=== PATIENT | male | born 1960 | race Caucasian/White ===

== ENCOUNTER 2022-01-18 17:36 | Emergency (ER) | payer MEDICARE, MEDICAID ==
[~2022-01-18] VITALS: Ht 182.9 cm; Wt 113.6 kg
[~2022-01-18 17:36] MED LIST: LOSA50TA3 PO; OXYC5SOL15 PO; PANT40TA39 PO; PROM25TA14 PO; ZOF4T PO; ZOLP10TA5 PO
[2022-01-18 18:43] LABS: BASOPHILS % (AUTO) 0.7 % (0-1); EOSINOPHILS # (AUTO) 0.1 X10'3 (0-0.9); EOSINOPHILS % (AUTO) 2.9 % (0-6); HEMATOCRIT 43.7 % (42.0-52.0); HEMOGLOBIN 14.4 g/dl (14.0-17.9); LYMPHOCYTES # (AUTO) 0.9 X10'3 (1.1-4.8); LYMPHOCYTES % (AUTO) 18.8 % (21-51); MEAN CORPUSCULAR HEMOGLOBIN 28.2 PG (27.0-31.0); MEAN CORPUSCULAR HGB CONC 32.9 g/dL (33.0-36.5); MEAN CORPUSCULAR VOLUME 85.7 FL (78-98); MEAN PLATELET VOLUME 8.7 FL (7.4-10.4); MONOCYTES # (AUTO) 0.3 X10'3 (0-0.9); MONOCYTES % (AUTO) 5.6 % (2-12); NEUTROPHILS # (AUTO) 3.6 X10'3 (1.8-7.7); PLATELET COUNT 154 X10'3 (140-440); RED CELL DISTRIBUTION WIDTH 14.8 % (11.5-14.5)
[2022-01-18 20:34] LABS: ALANINE AMINOTRANSFERASE 24 U/L (12-78); ALBUMIN 3.7 G/DL (3.4-5.0); ALBUMIN/GLOBULIN RATIO 0.9 (1.1-1.5); ALKALINE PHOSPHATASE 66 IU/L (46-116); ANION GAP 1 (8-16); ASPARTATE AMINO TRANSFERASE 22 U/L (10-37); BILIRUBIN,TOTAL 0.7 MG/DL (0.1-1.0); BLOOD UREA NITROGEN 19 MG/DL (7-18); BUN/CREATININE RATIO 13.9 (5.4-32.0); CALCIUM 8.9 MG/DL (8.5-10.1); CHLORIDE 105 MMOL/L (99-107); CREATININE 1.37 MG/DL (0.60-1.10); GLUCOSE 158 MG/DL (70-104); POTASSIUM 4.5 MMOL/L (3.5-5.1); SODIUM 136 MMOL/L (135-145); TOTAL CARBON DIOXIDE 29.6 MMOL/L (24-32); TOTAL PROTEIN 7.9 G/DL (6.4-8.2); eGFR 53 ML/MIN
--- NOTE | 2022-01-19 03:39 | NUR ---
DR JOHN AWARE OF PT'S BP
[2022-01-19 04:10] VITALS: BP 198/92
== END 2022-01-19 04:13 | disposition home or self-care (01) ==
LOC: MERGE 17:37 → ER 17:37
DX: I10 Essential (primary) hypertension (principal); R53.1 Weakness; R51.9 Headache, unspecified; R07.89 Other chest pain; R06.02 Shortness of breath; Z88.2 Allergy status to sulfonamides
CPT/HCPCS: 36415; 71045; 80053; 83880; 84484; 85025; 93005; 99285

== ENCOUNTER 2025-02-22 09:45 | Outpatient (CLI) | payer MEDICARE, MEDICAID ==
[~2025-02-22 09:45] MED LIST changes: +LOSA-416 PO; -LOSA50TA3 PO
--- NOTE | 2025-02-22 19:41 | CONSULTATION ---
DATE OF CONSULTATION: 02/22/2025 DICTATING PHYSICIAN: Adia Heaton M.S., [facility] MODIFIED BARIUM SWALLOW STUDY REPORT REFERRING PHYSICIAN: Anum Prajapati MD HISTORY OF PRESENT ILLNESS: The patient is a 64-year-old male who consents to this evaluation. History was obtained from the patient and medical records. The patient reports symptoms of dysphagia including feeling that things stick in his esophagus at the level of his sternum. He reports that it is often dry foods or items such as chicken breast, he has to cut them up very small and utilize a dressing or sauce to help it go through the esophagus easier. He notes that he tends to avoid things such as beef roast and pork roast due to difficulty with these sticking in his esophagus. The patient had an upper GI that he reports was normal in its findings. 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 He also has a history of sleep apnea. CURRENT DIET: The patient does not consume caffeine. He does not utilize tobacco products or drink alcohol. He has chocolate very rarely, perhaps once every few months and he does not have dairy due to being lactose intolerant. A typical breakfast consists of hash browns cut into very small pieces with an egg on top to make it more moist, as well as 1-2 sausages cut into small pieces. He does not snack in the morning. Typical lunch may be a microwave burrito or ramen. He does not snack in the afternoon. Typical dinner may be chicken, beef or frozen noodles, which are consumed at 6:00 p.m. He has fruit in the summertime for dessert and at other times of the year does not have dessert. He goes to bed at 11:00 p.m. MEDICATIONS: Jardiance 10 mg once daily orally, Norvasc 10 mg once daily orally, Coreg 3.125 mg once daily orally, Lipitor 10 mg once daily orally, Actos 30 mg once daily orally, vitamin D 50,000 units once weekly, English 10/325 p.r.n., Benadryl 25 mg 3 at bedtime to sleep. PARAMETERS: The patient is seated in a lateral 90-degree view and administered the usual protocol of thin and nectar thick liquids, puree and solid consistencies, as well as self-regulated boluses of thin liquids from a cup. RESULTS: In the oral stage of the swallow, lingual strength is mild to moderately reduced. There is a mild oral residue following the initial swallow of the boluses with some of that residue collecting under the tongue, indicating difficulty with propelling the bolus from the anterior to the posterior oral cavity. In the pharyngeal stage of the swallow, tongue base retraction is mild to moderately reduced and swallow initiation is slightly delayed for the thin liquid boluses with it residing at the level of the vallecula for the self-regulated thin liquid bolus before a swallow was initiated. Elevation of the hyothyroid complex was accomplished with mildly reduced epiglottic inversion and anterior and superior movement of the hyoid. Anterior movement of the posterior pharyngeal wall is observed. There is a mild to moderate pharyngeal residue, following the initial swallow of the bolus with most of the residue residing at the level of the vallecula, but a very small amount also at the level of the PES opening. PES opening is within functional limits. In terms of airway safety, the patient demonstrated penetration with the 5 mL thin liquid and thick liquid boluses, and he demonstrated aspiration in 1 out of 2 of the self-regulated boluses of the liquids from a cup. Both the penetration and the aspiration, the patient independently utilized a cough to project the bolus out of the airway. He after having this study denied ever having any aspiration on liquids at any other point, but this study today. ANTERIOR, POSTERIOR VIEW: In the AP plane, the bolus splits symmetrically between the pyriform sinuses. There was proximal movement of the bolus to the level of the midsternum, as well as slowed movement of the bolus through the esophagus once it reached that level of the midsternum. 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 There is a residue in the oral and pharyngeal cavities following the initial swallow of the bolus. He also demonstrated penetration of the 5 mL thin and thick liquid bolus and aspiration of the self-regulated thin liquid bolus. 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 DIAGNOSES: R13.12, dysphagia, oropharyngeal phase; R13.14, dysphagia, pharyngoesophageal phase; K21.9, gastroesophageal reflux disease. PATIENT EDUCATION: Immediately following modified barium swallow study, the patient was able to view the results. The normal anatomy of the swallowing mechanism was revealed. The patient was able to see how the current status of the oral motor and swallowing mechanism decreases his ability to swallow normally. The patient was educated on a recommendation for speech therapy to strengthen the tongue base and declined at this time. He was also educated on dietary modifications for laryngopharyngeal reflux disease with written handout provided. Since the patient did not have many dietary triggers for laryngopharyngeal reflux disease, he was also recommended to make his lunch meal, the larger meal of the day and to have a algologist dinner and to alternate his solids and liquids. RECOMMENDATIONS: * It was recommended that the patient receive swallowing therapy one time weekly for 12 weeks to improve the strength and range of motion of the oral motor and swallowing mechanism to ensure airway safety protection and prevent aspiration. The patient declined this recommendation at this time. * It is recommended that the patient utilize strategies for laryngopharyngeal reflux disease including dietary modifications and making his lunch the larger meal of the day versus with a algologist dinner. It is also recommended to alternate his liquids and solids. LONG-TERM GOALS: The patient will maintain adequate hydration/nutrition with optimum safety and efficiency of swallow function on p.o. intake without overt signs and symptoms of aspiration for the highest possible diet level. FUNCTIONAL ORAL INTAKE: The FOIS was administered to establish and document a change in the functional eating activities of this patient over time. This is a 7-point scale with 1 indicating no oral intake and totally tube dependent and 7 indicating total oral intake with no restrictions. This patient received a 6, which indicates he has a total oral diet with multiple consistencies without special preparation but with specific food limitations and precautions. G-CODE: [id number]. Thank you very much for asking me to participate in the care of this kind patient. Should you have any questions regarding this evaluation or recommendations, please do not hesitate to contact me at [phone]. During this examination, 2 minutes and 47 seconds of fluoroscopy time and 22.16 CAK mGy were utilized. Adia Heaton M.S., [facility] TID: [id number] RECEIPT: [id number] MADHAV/CARLOTA/GRACY HOWARDD
== END 2025-02-22 23:59 | disposition home or self-care (01) ==
LOC: RAD 09:45
PROVIDERS: ATTEND General Practice
DX: R13.14 Dysphagia, pharyngoesophageal phase (principal); K21.9 Gastro-esophageal reflux disease without esophagitis; R13.12 Dysphagia, oropharyngeal phase
CPT/HCPCS: 74230